=== PATIENT | male | born 1960 | race Hispanic/Latino ===

== ENCOUNTER 2021-06-28 08:21 | Emergency (ER) | payer SELFPAY ==
[2021-06-28 09:25] VITALS: BP 121/57
--- NOTE | 2021-06-28 11:06 | Emergency Department Report ---
ED Extremity Problem HPI - General Chief complaint: Upper Respiratory Infection Stated complaint: PAIN LT ARM AND LEGS Time Seen by Provider: 06/28/21 10:36 Source: patient Mode of arrival: Ambulatory Limitations: No Limitations - History of Present Illness Initial comments: 61 year old male with pmhx of neuropathy, diabetes, sciatica and hypertension pr esents to the ER today with complaints of pain from his left shoulder down into his left forearm. Patient states that his pain started yesterday. Patient states that the pain in his arm gets worse when he extends his finger and he reports difficulty being able to move his left elbow due to pain. He reports swelling mainly about his left elbow. He denies any particular injury but states that he has been doing lots of housework over the past couple days. He denies any known history of gout or arthritis. He states that he takes tramadol and gabapentin which is prescribed by his doctor for chronic pain and peripheral neuropathy but he states that has not been helping. He reports no focal weakness, numbness, tingling, chest pain, shortness of breath, skin discoloration or any additional symptoms at this time. MD Complaint: extremity pain, joint paint -: days(s) (1) Severity scale (0 -10): 10 - Related Data Previous Rx's Medication Instructions Recorded Last Taken Type Acetaminophen/Codeine [Tylenol 1 tab PO Q6H PRN #12 tab 06/28/21 Unknown Rx /Codeine # 3 tab] Ibuprofen [Motrin] 600 mg PO Q8H PRN #25 tablet 06/28/21 Unknown Rx Allergies Allergy/AdvReac Type Severity Reaction Status Date / Time No Known Allergies Allergy Unverified 06/28/21 09:21 ED Review of Systems ROS: Stated complaint: PAIN LT ARM AND LEGS Other details as noted in HPI Comment: All other systems reviewed and negative Respiratory: denies: cough, shortness of breath, SOB with exertion, SOB at rest, wheezing Cardiovascular: denies: chest pain, palpitations, syncope, paroxysmal nocturnal dyspnea Musculoskeletal: joint swelling, arthralgia Neurological: denies: headache, weakness, numbness, paresthesias, confusion, abnormal gait, vertigo Psychiatric: denies: anxiety, depression, auditory hallucinations, visual hallucinations, homicidal thoughts, suicidal thoughts Hematological/Lymphatic: denies: easy bleeding, easy bruising, swollen glands ED Past Medical Hx - Past Medical History Previous Medical History?: Yes Hx Hypertension: Yes Hx Diabetes: Yes - Surgical History Additional Surgical History: MULTIPLE FOOT SURGERIES/ CLAVICLE - Medications Home Medications: Home Medications Medication Instructions Recorded Confirmed Last Taken Type Acetaminophen/Codeine [Tylenol 1 tab PO Q6H PRN #12 tab 06/28/21 Unknown Rx /Codeine # 3 tab] Ibuprofen [Motrin] 600 mg PO Q8H PRN #25 tablet 06/28/21 Unknown Rx ED Physical Exam - General Limitations: No Limitations General appearance: alert, in no apparent distress - Head Head exam: Present: atraumatic, normocephalic, normal inspection - Eye Eye exam: Present: normal appearance, PERRL Pupils: Present: normal accommodation - Respiratory Respiratory exam: Present: normal lung sounds bilaterally. Absent: respiratory distress, wheezes, rales, rhonchi, stridor - Cardiovascular Cardiovascular Exam: Present: regular rate, normal rhythm, normal heart sounds - Expanded Upper Extremity Exam Left Shoulder Exam: Present: normal inspection, full ROM. Absent: tenderness Upper Arm exam: Present: normal inspection, full ROM. Absent: tenderness, swelling Elbow exam: Present: full ROM (Flexion and extension reduced of the left elbow), tenderness (Exquisite tenderness noted to palpation to the lateral aspect of the left elbow. No bruising, significant eerythema or deformity noted. ), swelling (There is mild swelling about the left elbow when compared to the right.), pain w/ pronation/supination. Absent: abrasion, laceration, ecchymosis, deformity, crepidus, dislocation, effusion Forearm Wrist exam: Present: normal inspection, full ROM. Absent: tenderness, swelling, abrasion Hand Wrist exam: Present: normal inspection, full ROM. Absent: tenderness, swelling, abrasion Neurosensory exam: Present: radial nerve intact, ulnar nerve intact, median nerve intact Vascular: Present: normal capillary refill, radial pulse (Normal). Absent: vascular compromise - Neurological Exam Neurological exam: Present: alert, oriented X3, CN II-XII intact, normal gait - Psychiatric Psychiatric exam: Present: normal affect, normal mood - Skin Skin exam: Present: intact ED Course Vital Signs 06/28/21 06/28/21 06/28/21 09:23 09:25 09:33 Temperature 98.2 F 98.2 F 98.2 F Pulse Rate 77 56 L Respiratory 20 20 20 Rate Blood Pressure 121/57 Blood Pressure 121/57 [Right] O2 Sat by Pulse 97 97 Oximetry ED Medical Decision Making - Radiology Data Radiology results: report reviewed Patient: FROY SADLER MR#: [id number] : 1960 Acct:[id number] Age/Sex: 61 / M ADM Date: 06/28/21 Loc: ED Attending Dr: Ordering Physician: CHICHO CORONA Date of Service: 06/28/21 Procedure(s): XR elbow 3+V LT Accession Number(s): [id number] cc: CHICHO CORONA Fluoro Time In Minutes: Left elbow radiograph, 3 views HISTORY: Pain/swelling. COMPARISON: None FINDINGS: No acute fracture or malalignment. Mild osteophyte arthritis. There is osseous excrescence at the radial tuberosity, compatible with enthesophyte formation at the biceps tendon insertion. No significant joint capsular distention. There is soft tissue prominence of the dorsal elbow. IMPRESSION: Nonspecific soft tissue swelling of the dorsal elbow. No acute osseous abnormality. Signer Name: Tori Bullard MD Signed: 06/28/2021 12:35 PM Workstation Name: [id number] Transcribed By: JS Dictated By: TORI BULLARD MD Electronically Authenticated By: TORI BULLARD MD Signed Date/Time: 06/28/21 1235 DD/ 1234 TD/TT: - Medical Decision Making Xray shows soft non specific swelling, and changes concerning for tendonitis/djd but nothing else acute. Patient exam does not suggest septic joint, DVT, acute arterial occlusion, cellulitis or any other emergent conditions warranting additional testing, specialist consult or admission at this time. Discussed imaging results with patient. Recommend follow up with Ortho. He was given sling and pain meds. Patient not toxic or ill appearing and not in any acute distress. Patient expressed understanding of instructions and agreed with plan. Pt was stable at time of discharge. Critical care attestation.: If time is entered above; I have spent that time in minutes in the direct care of this critically ill patient, excluding procedure time. ED Disposition Clinical Impression: Elbow pain, left, Tendonitis of elbow, left, Degenerative joint disease of elbow, left Disposition: 01 HOME / SELF CARE / HOMELESS Is pt being admited?: No Does the pt Need Aspirin: No Condition: Stable Instructions: Arthritis, Tendinitis, [id number], Joint Pain, [id number] Additional Instructions: I recommend that you take the ibuprofen and the tylenol 3 as prescribed. Do not take the tramadol while taking the tylenol 3. Use sling for the next 2-3 days to help with pain and keep it elevated. You can apply ice to area to help with pain and swelling. I do recommend close follow up with Neurology Director next week for further evaluation. Return to ED if worse. Prescriptions: Ibuprofen [Motrin] 600 mg PO Q8H PRN #25 tablet PRN Reason: Pain Acetaminophen/Codeine [Tylenol /Codeine # 3 tab] 1 tab PO Q6H PRN #12 tab PRN Reason: Pain Referrals: DUC LEIVA MD [Staff Physician] - 3-5 Days Time of Disposition: 13:06
--- NOTE | 2021-06-28 12:40 | XRay Report ---
Left elbow radiograph, 3 views HISTORY: Pain/swelling. COMPARISON: None FINDINGS: No acute fracture or malalignment. Mild osteophyte arthritis. There is osseous excrescence at the radial tuberosity, compatible with enthesophyte formation at the biceps tendon insertion. No s ignificant joint capsular distention. There is soft tissue prominence of the dorsal elbow. IMPRESSION: Nonspecific soft tissue swelling of the dorsal elbow. No acute osseous abnormality. Signer Name: Gonzalo Bullard MD Signed: 06/28/2021 12:35 PM Workstation Name: [id number] Referrals-[id number]
== END 2021-06-28 14:45 | disposition home or self-care (01) ==
LOC: ED 08:21
DX: M19.022 Primary osteoarthritis, left elbow (principal); M77.8 Other enthesopathies, not elsewhere classified; M25.522 Pain in left elbow; I10 Essential (primary) hypertension; E11.9 Type 2 diabetes mellitus without complications; Z79.899 Other long term (current) drug therapy; Z98.890 Other specified postprocedural states

== ENCOUNTER 2021-06-30 09:34 | Emergency (ER) | payer SELFPAY ==
[2021-06-30 09:42] VITALS: BP 132/65
--- NOTE | 2021-06-30 10:31 | Emergency Department Report ---
- General Chief complaint: Extremity Injury, Upper Stated complaint: LT FOREARM SWOLLEN RED AND WARM Time Seen by Provider: 06/30/21 10:31 Source: patient Mode of arrival: Ambulatory Limitations: No Limitations - History of Present Illness Initial comments: Patient is a 61-year-old male presents emergency room complaints of pain to his left forearm and elbow that began 2 days ago. He states he is also been having swelling, redness, increased warmth. Patient states that they are doing construction work in his house and he is not sure if he may have been cut by a nail. He states he also plays with his son's dog who sometimes bites a little bit if he plays. He states he is not sure what caused the skin puncture. He states his tetanus immunization is up-to-date. He denies any drainage, fever, chills, vomiting, diarrhea. Past medical history of hypertension and diabetes. No allergies to medications. - Related Data Previous Rx's Medication Instructions Recorded Last Taken Type Acetaminophen/Codeine [Tylenol 1 tab PO Q6H PRN #12 tab 06/28/21 Unknown Rx /Codeine # 3 tab] Ibuprofen [Motrin] 600 mg PO Q8H PRN #25 tablet 06/28/21 Unknown Rx Amoxicillin/Potassium Clav 1 each PO BID 10 Days #20 tablet 06/30/21 Unknown Rx [Augmentin 875-125 Tablet] HYDROcodone/APAP 5-325 [[place] 1 each PO Q6HR PRN #12 tablet 06/30/21 Unknown Rx 5/325] Sulfamethoxazole/Trimethoprim 1 each PO BID 7 Days #14 tablet 06/30/21 Unknown Rx [Bactrim DS TAB] Allergies Allergy/AdvReac Type Severity Reaction Status Date / Time No Known Allergies Allergy Verified 06/30/21 09:36 Abscess Boil HPI - HPI Chief Complaint: Extremity Injury, Upper Stated Complaint: LT FOREARM SWOLLEN RED AND WARM Time Seen by Provider: 06/30/21 10:31 Home Medications: Previous Rx's Medication Instructions Recorded Last Taken Type Acetaminophen/Codeine [Tylenol 1 tab PO Q6H PRN #12 tab 06/28/21 Unknown Rx /Codeine # 3 tab] Ibuprofen [Motrin] 600 mg PO Q8H PRN #25 tablet 06/28/21 Unknown Rx Amoxicillin/Potassium Clav 1 each PO BID 10 Days #20 tablet 06/30/21 Unknown Rx [Augmentin 875-125 Tablet] HYDROcodone/APAP 5-325 [[place] 1 each PO Q6HR PRN #12 tablet 06/30/21 Unknown Rx 5/325] Sulfamethoxazole/Trimethoprim 1 each PO BID 7 Days #14 tablet 06/30/21 Unknown Rx [Bactrim DS TAB] Allergies/Adverse Reactions: Allergies Allergy/AdvReac Type Severity Reaction Status Date / Time No Known Allergies Allergy Verified 06/30/21 09:36 ED Review of Systems ROS: Stated complaint: LT FOREARM SWOLLEN RED AND WARM Other details as noted in HPI Comment: All other systems reviewed and negative ED Past Medical Hx - Past Medical History Hx Hypertension: Yes Hx Diabetes: Yes - Surgical History Additional Surgical History: MULTIPLE FOOT SURGERIES/ CLAVICLE - Social History Smoking Status: Never Smoker - Medications Home Medications: Home Medications Medication Instructions Recorded Confirmed Last Taken Type Acetaminophen/Codeine [Tylenol 1 tab PO Q6H PRN #12 tab 06/28/21 Unknown Rx /Codeine # 3 tab] Ibuprofen [Motrin] 600 mg PO Q8H PRN #25 tablet 06/28/21 Unknown Rx Amoxicillin/Potassium Clav 1 each PO BID 10 Days #20 tablet 06/30/21 Unknown Rx [Augmentin 875-125 Tablet] HYDROcodone/APAP 5-325 [[place] 1 each PO Q6HR PRN #12 tablet 06/30/21 Unknown Rx 5/325] Sulfamethoxazole/Trimethoprim 1 each PO BID 7 Days #14 tablet 06/30/21 Unknown Rx [Bactrim DS TAB] ED Physical Exam - General Limitations: No Limitations General appearance: alert, in no apparent distress - Head Head exam: Present: atraumatic, normocephalic - Eye Eye exam: Present: normal appearance - ENT ENT exam: Present: mucous membranes moist - Respiratory Respiratory exam: Absent: respiratory distress, accessory muscle use - Extremities Exam Extremities exam: Present: other (there is a 5 cm area of erythema, edema, and increased warmth present to the left forearm and left elbow, there is a small 2mm puncture wound, no fluctuance, no drainage, no necrosis, no crepitus, compartments are soft, slightly decreased ROM of the left elbow, neurovasculalry intact) - Neurological Exam Neurological exam: Present: alert, oriented X3 - Psychiatric Psychiatric exam: Present: normal affect, normal mood - Skin Skin exam: Present: warm, dry ED Course Vital Signs 06/30/21 09:40 Temperature 98.2 F Pulse Rate 79 Respiratory 20 Rate Blood Pressure 132/65 O2 Sat by Pulse 94 Oximetry ED Medical Decision Making - Medical Decision Making Patient is a 61-year-old male presents emergency room complaints of pain to his left forearm and elbow that began 2 days ago. He states he is also been having swelling, redness, increased warmth. Patient states that they are doing construction work in his house and he is not sure if he may have been cut by a nail. He states he also plays with his son's dog who sometimes bites a little bit if he plays. He states he is not sure what caused the skin puncture. He states his tetanus immunization is up-to-date. He denies any drainage, fever, chills, vomiting, diarrhea. Past medical history of hypertension and diabetes. No allergies to medications. Vitals are stable. Patient is afebrile, no tachycardia, no hypotension. On exam:there is a 5 cm area of erythema, edema, and increased warmth present to the left forearm and left elbow, there is a small 2mm puncture wound, no fluctuance, no drainage, no necrosis, no crepitus, compartments are soft, slightly decreased ROM of the left elbow, neurovasculalry intact. Examination appears consistent with cellulitis. There is no signs of abscess at this time. Do not suspect septic joint, this appears to be infected skin in the forearm and elbow region likely initially from a small puncture wound. No clinical signs of necrotizing fasciitis at this time, no palpable soft tissue gas/crepitus, no necrosis. Patient will be placed on antibiotics and given pain medication. Discussed the importance of reexamination in the next 3 days. Skin marker was used to calixto the area of induration and advised to return immediately if it begins to cross the line. I discussed very strict return precautions in detail with patient and he verbalized understanding. Advised patient Please take medication as prescribed. Please follow-up with a primary care doctor in the next 3 days to have area reexamined. Return to emergency room immediately for any new or worsening symptoms including but not limited to worsening swelling, worsening redness, worsening pain, fever, vom iting, chills, etc. I have marked with a skin marker on your skin in the area of redness and swelling, if it begins to cross the line please return to emergency room immediately. Critical care attestation.: If time is entered above; I have spent that time in minutes in the direct care of this critically ill patient, excluding procedure time. ED Disposition Clinical Impression: Cellulitis Qualifiers: Site of cellulitis: extremity Site of cellulitis of extremity: upper extremity Laterality: left Qualified Code(s): L03.114 - Cellulitis of left upper limb Disposition: HOME / SELF CARE / HOMELESS Is pt being admited?: No Does the pt Need Aspirin: No Condition: Stable Instructions: Cellulitis, Adult Additional Instructions: Please take medication as prescribed. Please follow-up with a primary care doctor in the next 3 days to have area reexamined. Return to emergency room immediately for any new or worsening symptoms including but not limited to worsening swelling, worsening redness, worsening pain, fever, vomiting, chills, etc. I have marked with a skin marker on your skin in the area of redness and swelling, if it begins to cross the line please return to emergency room immediately. Prescriptions: Amoxicillin/Potassium Clav [Augmentin 875-125 Tablet] 1 each PO BID 10 Days #20 tablet Sulfamethoxazole/Trimethoprim [Bactrim DS TAB] 1 each PO BID 7 Days #14 tablet HYDROcodone/APAP 5-325 [[place] 5/325] 1 each PO Q6HR PRN #12 tablet PRN Reason: Pain , Severe (7-10) Referrals: your, primary care doctor [Other] - 2-3 Days Time of Disposition: 10:34 Print Language: DIVEHI
== END 2021-06-30 10:55 | disposition home or self-care (01) ==
LOC: ED 09:34
DX: L03.114 Cellulitis of left upper limb (principal); I10 Essential (primary) hypertension; E11.9 Type 2 diabetes mellitus without complications; Z79.899 Other long term (current) drug therapy; Z98.890 Other specified postprocedural states
CPT/HCPCS: 99282

== ENCOUNTER 2021-07-02 17:29 | Inpatient (IN) | payer SELFPAY ==
--- NOTE | 2021-07-02 20:10 | Event Note ---
ED Screening Note Date of service: 07/02/21 Time: 20:08 ED Screening Note: 61-year-old male patient with history of diabetes presents to the emergency department with complaints of progressively worsening left elbow pain/redness/swelling. Patient was evaluated in the emergency department 2 days ago and diagnosed with cellulitis. He was prescribed Augmentin and Bactrim. He has been compliant with his antibiotics. Symptoms have worsened. General: Awake, appropriately interactive, no acute distress. Neck: Supple. Full range of motion intact. Cardiovascular: Normal peripheral perfusion. Pulmonary: No respiratory distress. Patient is speaking normally without use of accessory muscles. Skin: No apparent rashes or lesions. Neurological: No facial asymmetry. Speech is clear. Follows commands. Patient is alert and oriented. Musculoskeletal: Tenderness to palpation throughout the left elbow and proximal left forearm with overlying erythema and significant soft tissue swelling. Painful range of motion. Left elbow held in flexion at rest. Distal neurovascular and motor/sensory function intact. Psych: Cooperative. Appropriate mood and affect.
--- NOTE | 2021-07-02 20:44 | XRay Report ---
CHEST 2 VIEWS INDICATION / CLINICAL INFORMATION: chills, 93% o2 sat. COMPARISON: None available. FINDINGS: SUPPORT DEVICES: None. HEART / MEDIASTINUM: No significant abnormality. LUNGS / PLEURA: No significant pulmonary or pleural abnormality. No pneumothorax. ADDITIONAL FINDINGS: Surgical fixation of right clavicle. IMPRESSION: 1. No acute findings. Signer Name: Sergio Melgoza MD Signed: 07/02/2021 8:40 PM Workstation Name: [id number]
[2021-07-02] MEDS ORDERED: MORPHINE 4 MG/1 ML INJ IV ONE (20:46)
[2021-07-02] MEDS ORDERED: ONDANSETRON 4 MG/2 ML INJ IV ONE (20:46)
--- NOTE | 2021-07-02 20:47 | XRay Report ---
LEFT ELBOW 3 VIEW(S) INDICATION / CLINICAL INFORMATION: worsening cellulitis to elbow, hx dm, septic joint COMPARISON: None available. FINDINGS: BONES / JOINT(S): No acute fracture or subluxation. There are degenerative changes at the radial tube rosity. No joint effusion. SOFT TISSUES: Soft tissue swelling at the dorsum of the elbow. No soft tissue gas seen. ADDITIONAL FINDINGS: None. Signer Name: Sergio Melgoza MD Signed: 07/02/2021 8:42 PM Workstation Name: [id number]
[2021-07-02] MEDS ORDERED: VANCOMYCIN 2,000 MG in SODIUM CHLORIDE 0.9% 500 ML 500 ML IV ONE (20:50)
[2021-07-02 21:13] LABS: Basophils % (Auto) 0.4 % (0.0-1.8); Eosinophils # (Auto) 0.1 K/mm3 (0.0-0.4); Eosinophils % (Auto) 0.7 % (0.0-4.3); Hematocrit 30.5 % (35.5-45.6); Hemoglobin 10.5 gm/dl (11.8-15.2); Lymphocytes # (Auto) 1.3 K/mm3 (1.2-5.4); Lymphocytes % (Auto) 11.8 % (13.4-35.0); Mean Corpuscular HGB Conc 34 % (32-34); Mean Corpuscular Volume 97 fl (84-94); Monocytes % (Auto) 8.8 % (0.0-7.3); Platelet Count 287 K/mm3 (140-440); Red Blood Count 3.15 M/mm3 (3.65-5.03); Red Cell Distribution Width 13.2 % (13.2-15.2)
[2021-07-02 21:30] LABS: Erythrocyte Sedimentation Rate > 140.0 mm/Hr (0-20)
[2021-07-02 21:32] LABS: Alanine Aminotransferase 14 units/L (7-56); Albumin 3.9 g/dL (3.9-5); BUN/Creatinine Ratio 20; Blood Urea Nitrogen 20 mg/dL (9-20); Calcium 9.5 mg/dL (8.4-10.2); Hemolysis Index 10
--- NOTE | 2021-07-02 21:49 | Emergency Department Report ---
ED Extremity Problem HPI - General Chief complaint: Extremity Injury, Upper Stated complaint: PAIN LT ELBOW/NAUSEA Time Seen by Provider: 07/02/21 20:19 Source: patient Mode of arrival: Ambulatory Limitations: No Limitations - History of Present Illness Initial comments: 61-year-old male with a past medical history of diabetes previously on insulin and pills) and hypertension presents to the hospital complaining of persistent left arm pain and swelling. Patient was evaluated here on June 28 for left elbow pain. Diagnosed with tendinitis. Returned on June 30. Diagnosed with cellulitis. Patient has been taking the prescribed Augmentin and Bactrim without improvement. Patient prescribed [place] for pain. Swelling, pain, redness, warmth have been worsening. Patient denies subjective fever. Patient states he has decreased p.o. intake due to nausea and occasional vomiting. Symptoms started after puncture wound via nail. Patient states he has received a tetanus shot 2 to 3 years ago. Patient's O2 saturation room air decorated 93% on initial vital signs. Patient denies respiratory symptoms. History of smoking in the past. Severity scale (0 -10): 10 - Related Data Previous Rx's Medication Instructions Recorded Last Taken Type Acetaminophen/Codeine [Tylenol 1 tab PO Q6H PRN #12 tab 06/28/21 Unknown Rx /Codeine # 3 tab] Ibuprofen [Motrin] 600 mg PO Q8H PRN #25 tablet 06/28/21 Unknown Rx Amoxicillin/Potassium Clav 1 each PO BID 10 Days #20 tablet 06/30/21 Unknown Rx [Augmentin 875-125 Tablet] HYDROcodone/APAP 5-325 [[place] 1 each PO Q6HR PRN #12 tablet 06/30/21 Unknown Rx 5/325] Sulfamethoxazole/Trimethoprim 1 each PO BID 7 Days #14 tablet 06/30/21 Unknown Rx [Bactrim DS TAB] Allergies Allergy/AdvReac Type Severity Reaction Status Date / Time No Known Allergies Allergy Verified 07/02/21 19:44 ED Review of Systems ROS: Stated complaint: PAIN LT ELBOW/NAUSEA Other details as noted in HPI Comment: All other systems reviewed and negative ED Past Medical Hx - Past Medical History Hx Hypertension: Yes Hx Diabetes: Yes - Surgical History Additional Surgical History: MULTIPLE FOOT SURGERIES/ [place] - Social History Smoking Status: Never Smoker - Medications Home Medications: Home Medications Medication Instructions Recorded Confirmed Last Taken Type Acetaminophen/Codeine [Tylenol 1 tab PO Q6H PRN #12 tab 06/28/21 Unknown Rx /Codeine # 3 tab] Ibuprofen [Motrin] 600 mg PO Q8H PRN #25 tablet 06/28/21 Unknown Rx Amoxicillin/Potassium Clav 1 each PO BID 10 Days #20 tablet 06/30/21 Unknown Rx [Augmentin 875-125 Tablet] HYDROcodone/APAP 5-325 [[place] 1 each PO Q6HR PRN #12 tablet 06/30/21 Unknown Rx 5/325] Sulfamethoxazole/Trimethoprim 1 each PO BID 7 Days #14 tablet 06/30/21 Unknown Rx [Bactrim DS TAB] ED Physical Exam - General Limitations: No Limitations - Other Other exam information: General: No acute distress Head: Atraumatic Eyes: normal appearance ENT: Moist mucous membranes Neck: Normal appearance, no midline tenderness Chest: Clear to auscultation bilaterally CV: Regular rate and rhythm Abdomen: Soft, normal bowel sounds, nontender, nondistended, no rebound or guarding Back: Normal inspection Extremity: Left proximal lateral forearm pain, swelling, warmth, and erythema starting at the elbow and extending distally limited flexion and extension secondary to pain. Mild tenderness at the olecranon area. 2+ radial pulse Neuro: Alert O x 3, no facial asymmetry, speech clear, no gross motor sensory deficit Psych: Appropriate behavior Skin: No rash ED Course Vital Signs 07/02/21 07/02/21 19:46 19:48 Temperature 99.4 F Pulse Rate 87 Blood Pressure 147/64 O2 Sat by Pulse 93 Oximetry ED Medical Decision Making - Lab Data Result diagrams: 07/02/21 20:53 07/02/21 20:53 Lab Results 07/02/21 07/02/21 Range/Units 20:53 20:53 WBC 11.3 H (4.5-11.0) K/mm3 RBC 3.15 L (3.65-5.03) M/mm3 Hgb 10.5 L (11.8-15.2) gm/dl Hct 30.5 L (35.5-45.6) % MCV 97 H (84-94) fl MCH 33 H (28-32) pg MCHC 34 (32-34) % RDW 13.2 (13.2-15.2) % Plt Count 287 (140-440) K/mm3 Lymph % (Auto) 11.8 L (13.4-35.0) % [place] % (Auto) 8.8 H (0.0-7.3) % Eos % (Auto) 0.7 (0.0-4.3) % Baso % (Auto) 0.4 (0.0-1.8) % Lymph # (Auto) 1.3 (1.2-5.4) K/mm3 [place] # (Auto) 1.0 H (0.0-0.8) K/mm3 Eos # (Auto) 0.1 (0.0-0.4) K/mm3 Baso # (Auto) 0.0 (0.0-0.1) K/mm3 Seg Neutrophils % 78.3 H (40.0-70.0) % Seg Neutrophils # 8.8 H (1.8-7.7) K/mm3 ESR > 140.0 (0-20) mm/Hr Sodium 132 L (137-145) mmol/L Potassium 4.3 (3.6-5.0) mmol/L Chloride 93.3 L (98-107) mmol/L Carbon Dioxide 28 (22-30) mmol/L Anion Gap 15 mmol/L BUN 20 (9-20) mg/dL Creatinine 1.0 (0.8-1.3) mg/dL Estimated GFR > 60 ml/min BUN/Creatinine Ratio 20 % Glucose 298 H (75-100) mg/dL Calcium 9.5 (8.4-10.2) mg/dL Total Bilirubin 0.20 (0.1-1.2) mg/dL AST 15 (5-40) units/L ALT 14 (7-56) units/L Alkaline Phosphatase 67 (35-129) units/L C-Reactive Protein 30.30 H (0.00-1.30) mg/dL Total Protein 8.4 H (6.3-8.2) g/dL Albumin 3.9 (3.9-5) g/dL Albumin/Globulin Ratio 0.9 % - Radiology Data Radiology results: report reviewed LEFT ELBOW 3 VIEW(S) INDICATION / CLINICAL INFORMATION: worsening cellulitis to elbow, hx dm, septic joint COMPARISON: None available. FINDINGS: BONES / JOINT(S): No acute fracture or subluxation. There are degenerative c hanges at the radial tuberosity. No joint effusion. SOFT TISSUES: Soft tissue swelling at the dorsum of the elbow. No soft tissue gas seen. ADDITIONAL FINDINGS: None. - Medical Decision Making 61-year-old diabetic male presents to the hospital worsening left elbow/forearm cellulitis with elevated inflammatory markers. Patient has failed outpatient therapy. IV vancomycin ordered with plan to admit patient to the hospital for further treatment. Patient treated with morphine and Zofran for pain. Critical Care Time: No Critical care attestation.: If time is entered above; I have spent that time in minutes in the direct care of this critically ill patient, excluding procedure time. ED Disposition Clinical Impression: Cellulitis of left forearm, Diabetes, Failure of outpatient treatment Disposition: 09 ADMITTED INPATIENT Is pt being admited?: Yes Condition: Stable Instructions: Diabetes Mellitus Type 2 in Adults (ED) Time of Disposition: 21:57
[2021-07-02] MEDS ORDERED: ALBUTEROL 2.5 MG/3 ML NEBU IH PRN (22:13)
[2021-07-02] MEDS ORDERED: ACETAMINOPHEN 325 MG TAB PO PRN (22:13)
[2021-07-02] MEDS ORDERED: ONDANSETRON 4 MG/2 ML INJ IV PRN (22:13)
[2021-07-02] MEDS ORDERED: DEXTROSE 50% IN WATER (25GM) 50 ML SYRINGE IV PRN (22:13)
[2021-07-02] MEDS ORDERED: IBUPROFEN 600 MG TAB PO PRN (22:16)
--- NOTE | 2021-07-02 22:22 | History and Physical Report ---
History of Present Illness Date of examination: 07/02/21 Date of admission: 07/02/21 Chief complaint: Cellulitis pain of the left elbow History of present illness: 61-year-old male with history of diabetes and hypertension was brought to the hospital because of persistent left arm pain and swelling since June 27 after puncture wound by a nail. Patient was evaluated here on June 28 for left elbow pain. Patient was diagnosed with tendinitis. Returned on June 30. Diagnosed with cellulitis. Patient has been taking the prescribed Augmentin and Bactrim without improvement. Patient prescribed [place] for pain. Swelling, pain, redness, warmth have been worsening. Patient denies subjective fever. Patient states he has decreased p.o. intake due to nausea and occasional vomiting. Patient states he has received a tetanus shot 2 to 3 years ago. Patient's O2 saturation room air decorated 93% on initial vital signs. Patient denies respiratory symptoms. In the emergency room patient is found to have cellulitis of the left elbow. X- ray of the left elbow shows soft tissue swelling at the dorsum of the elbow. No soft tissue gas seen. Emergency doctor thinks patient does not need any orthopedic evaluation at this time. Will admit the patient put the patient on vancomycin and IV Zosyn and consult infectious disease. Med rec is done. Advance discharge process is initiated Past History Past Medical History: diabetes, hypertension Medications and Allergies Allergies Allergy/AdvReac Type Severity Reaction Status Date / Time No Known Allergies Allergy Verified 07/02/21 19:44 Home Medications Medication Instructions Recorded Confirmed Last Taken Type Acetaminophen/Codeine [Tylenol 1 tab PO Q6H PRN #12 tab 06/28/21 Unknown Rx /Codeine # 3 tab] Ibuprofen [Motrin] 600 mg PO Q8H PRN #25 tablet 06/28/21 Unknown Rx Amoxicillin/Potassium Clav 1 each PO BID 10 Days #20 tablet 06/30/21 Unknown Rx [Augmentin 875-125 Tablet] HYDROcodone/APAP 5-325 [[place] 1 each PO Q6HR PRN #12 tablet 06/30/21 Unknown Rx 5/325] Sulfamethoxazole/Trimethoprim 1 each PO BID 7 Days #14 tablet 06/30/21 Unknown Rx [Bactrim DS TAB] Active Meds: Active Medications Acetaminophen (Acetaminophen 325 Mg Tab) 650 mg PO Q4H PRN PRN Reason: Pain MILD(1-3)/Fever >100.5/VAZQUEZ Albuterol (Albuterol 2.5 Mg/3 Ml Nebu) 2.5 mg IH Q4HRT PRN PRN Reason: Shortness Of Breath Dextrose (Dextrose 50% In Water (25gm) 50 Ml Syringe) 50 ml IV Q30MIN PRN; Protocol PRN Reason: Hypoglycemia Famotidine (Famotidine 20 Mg Tab) 20 mg PO BID [facility] Heparin Sodium (Porcine) (Heparin 5,000 Unit/1 Ml Vial) 5,000 unit SUB-Q Q8HR [facility] Hydromorphone HCl (Hydromorphone 1 Mg/1 Ml Inj) 0.5 mg IV Q3H PRN PRN Reason: Pain , Severe (7-10) Vancomycin HCl 2,000 mg/ (Sodium Chloride) 540 mls @ 333 mls/hr IV ONCE ONE; Protocol Stop: 07/02/21 22:27 Last Admin: 07/02/21 21:53 Dose: 333 mls/hr Documented by: Vancomycin HCl (Vancomycin/Ns 1 Gm/250 Ml) 1 gm in 250 mls @ 166.667 mls/hr IV Q12H [facility]; Protocol Piperacillin Sod/Tazobactam Sod (Zosyn/Ns 4.5gm/100ml) 4.5 gm in 100 mls @ 200 mls/hr IV Q8H [facility]; Protocol Ibuprofen (Ibuprofen 600 Mg Tab) 600 mg PO Q8H PRN PRN Reason: PAIN Insulin Human Lispro (Insulin Lispro 100 Unit/Ml) 0 unit SUB-Q ACHS [facility]; Protocol Ondansetron HCl (Ondansetron 4 Mg/2 Ml Inj) 4 mg IV Q8H PRN PRN Reason: Nausea And Vomiting Oxycodone/Acetaminophen (Oxycodone /Acetaminophen 5-325mg Tab) 1 tab PO Q6H PRN PRN Reason: Pain, Moderate (4-6) Sodium Chloride (Sodium Chloride 0.9% 10 Ml Flush Syringe) 10 ml IV BID [place] Sodium Chloride (Sodium Chloride 0.9% 10 Ml Flush Syringe) 10 ml IV PRN PRN PRN Reason: LINE FLUSH Review of Systems All systems: negative Musculoskeletal: shooting arm pain, redness of joints, hot joints, other (Cellulitis of the left elbow) Exam - Constitutional Vitals: Temp Pulse Resp BP Pulse Ox 99.4 F 87 147/64 93 07/02/21 19:48 07/02/21 19:46 07/02/21 19:46 07/02/21 19:46 General appearance: Present: no acute distress, well-nourished - EENT Eyes: Present: PERRL ENT: hearing intact, clear oral mucosa - Neck Neck: Present: supple, normal ROM - Respiratory Respiratory effort: normal Respiratory: bilateral: CTA - Cardiovascular Heart Sounds: Present: S1 & S2. Absent: rub, click - Extremities Extremities: pulses symmetrical, No edema Extremity abnormal: edema, erythema, other (Cellulitis of the left elbow) Peripheral Pulses: within normal limits - Abdominal General gastrointestinal: Present: soft, non-tender, non-distended, normal bowel sounds Male genitourinary: Present: normal - Integumentary Integumentary: Present: clear, warm, dry - Musculoskeletal Musculoskeletal: gait normal, strength equal bilaterally - Psychiatric Psychiatric: appropriate mood/affect, intact judgment & insight - Neurologic Neurologic: CNII-XII intact, moves all extremities Results - Labs CBC & Chem 7: 07/02/21 20:53 07/02/21 20:53 Labs: Laboratory Last Values WBC 11.3 K/mm3 (4.5-11.0) H 07/02/21 20:53 RBC 3.15 M/mm3 (3.65-5.03) L 07/02/21 20:53 Hgb 10.5 gm/dl (11.8-15.2) L 07/02/21 20:53 Hct 30.5 % (35.5-45.6) L 07/02/21 20:53 MCV 97 fl (84-94) H 07/02/21 20:53 MCH 33 pg (28-32) H 07/02/21 20:53 MCHC 34 % (32-34) 07/02/21 20:53 RDW 13.2 % (13.2-15.2) 07/02/21 20:53 Plt Count 287 K/mm3 (140-440) 07/02/21 20:53 Lymph % (Auto) 11.8 % (13.4-35.0) L 07/02/21 20:53 [place] % (Auto) 8.8 % (0.0-7.3) H 07/02/21 20:53 Eos % (Auto) 0.7 % (0.0-4.3) 07/02/21 20:53 Baso % (Auto) 0.4 % (0.0-1.8) 07/02/21 20:53 Lymph # (Auto) 1.3 K/mm3 (1.2-5.4) 07/02/21 20:53 [place] # (Auto) 1.0 K/mm3 (0.0-0.8) H 07/02/21 20:53 Eos # (Auto) 0.1 K/mm3 (0.0-0.4) 07/02/21 20:53 Baso # (Auto) 0.0 K/mm3 (0.0-0.1) 07/02/21 20:53 Seg Neutrophils % 78.3 % (40.0-70.0) H 07/02/21 20:53 Seg Neutrophils # 8.8 K/mm3 (1.8-7.7) H 07/02/21 20:53 ESR > 140.0 mm/Hr (0-20) 07/02/21 20:53 Sodium 132 mmol/L (137-145) L 07/02/21 20:53 Potassium 4.3 mmol/L (3.6-5.0) 07/02/21 20:53 Chloride 93.3 mmol/L (98-107) L 07/02/21 20:53 Carbon Dioxide 28 mmol/L (22-30) 07/02/21 20:53 Anion Gap 15 mmol/L 07/02/21 20:53 BUN 20 mg/dL (9-20) 07/02/21 20:53 Creatinine 1.0 mg/dL (0.8-1.3) 07/02/21 20:53 Estimated GFR > 60 ml/min 07/02/21 20:53 BUN/Creatinine Ratio 20 % 07/02/21 20:53 Glucose 298 mg/dL (75-100) H 07/02/21 20:53 Calcium 9.5 mg/dL (8.4-10.2) 07/02/21 20:53 Total Bilirubin 0.20 mg/dL (0.1-1.2) 07/02/21 20:53 AST 15 units/L (5-40) 07/02/21 20:53 ALT 14 units/L (7-56) 07/02/21 20:53 Alkaline Phosphatase 67 units/L (35-129) 07/02/21 20:53 C-Reactive Protein 30.30 mg/dL (0.00-1.30) H 07/02/21 20:53 Total Protein 8.4 g/dL (6.3-8.2) H 07/02/21 20:53 Albumin 3.9 g/dL (3.9-5) 07/02/21 20:53 Albumin/Globulin Ratio 0.9 % 07/02/21 20:53 - Imaging and Cardiology Chest x-ray: report reviewed Assessment and Plan VTE prophylaxis?: Chemical Plan of care discussed with patient/family: Yes - Patient Problems (1) Cellulitis of left elbow Current Visit: Yes Status: Acute Plan to address problem: Admit the patient to the [facility]. 1800 kcal ADA diet. Vancomycin 1 g IV every 12 hours. Zosyn 4.5 g IV every every 8 hours.. We do the blood culture. Will consult infectious disease for evaluation. Wound care evaluation. Will consult orthopedic if needed. Recheck CBC BMP in the morning. (2) Tendonitis of elbow, left Current Visit: No Status: Acute Plan to address problem: Vancomycin 1 g IV every 12 hours. Zosyn 4.5 g IV every every 8 hours.. We do the blood culture. Will consult infectious disease for evaluation. Wound care evaluation. Will consult orthopedic if needed. Recheck CBC BMP in the morning. (3) Hypertension Current Visit: Yes Status: Acute Plan to address problem: Hydralazine 10 mg IV every 6 hours as needed. We will monitor the blood pressure closely (4) Diabetes Current Visit: Yes Status: Acute Plan to address problem: 1800 kcal ADA diet. Humalog sliding scale moderate dose coverage. Diabetic education (5) DVT prophylaxis Current Visit: Yes Status: Acute Plan to address problem: Heparin 5000 units subcu every 8 hours for DVT prophylaxis. Pepcid 20 mg p.o. twice daily for GI prophylaxis. Patient is a full code.
[2021-07-02] MEDS: HYDROmorphone 1 MG/1 ML INJ IV PRN (22:53)
[2021-07-02] MEDS ORDERED: VANCOMYCIN PHARMACY TO DOSE IV SCH (23:00)
[2021-07-02] MEDS ORDERED: VANCOMYCIN/NS 1 GM/250 ML 1 GM/250 ML BAG IV SCH (23:00)
[2021-07-03] MEDS ORDERED: PIPERACIL/TAZOBACTA 4.5/NS 100 4.5 GM/100 ML VIAL IV SCH
[2021-07-03] MEDS: HYDROmorphone 1 MG/1 ML INJ IV PRN ×3 (01:55→20:42)
[2021-07-03] MEDS: HEPARIN 5,000 UNIT/1 ML VIAL SUB-Q SCH ×3 (05:30→21:29)
[2021-07-03 06:16] LABS: Basophils % (Auto) 0.4 % (0.0-1.8); Eosinophils # (Auto) 0.1 K/mm3 (0.0-0.4); Eosinophils % (Auto) 1.3 % (0.0-4.3); Hematocrit 27.6 % (35.5-45.6); Hemoglobin 9.7 gm/dl (11.8-15.2); Lymphocytes # (Auto) 1.4 K/mm3 (1.2-5.4); Mean Corpuscular HGB Conc 35 % (32-34); Mean Corpuscular Volume 95 fl (84-94); Monocytes # (Auto) 1.1 K/mm3 (0.0-0.8); Monocytes % (Auto) 10.3 % (0.0-7.3); Platelet Count 279 K/mm3 (140-440); Red Blood Count 2.92 M/mm3 (3.65-5.03); Red Cell Distribution Width 13.2 % (13.2-15.2)
[2021-07-03 06:19] LABS: BUN/Creatinine Ratio 19; Blood Urea Nitrogen 19 mg/dL (9-20); Hemolysis Index 1
[2021-07-03] MEDS: INSULIN LISPRO 100 UNIT/ML SUB-Q SCH ×4 (08:38→21:29)
[2021-07-03] MEDS: VANCOMYCIN 1,500 MG in SODIUM CHLORIDE 0.9% 500 ML 500 ML IV SCH ×2 (09:50→23:05)
[2021-07-03] MEDS: FAMOTIDINE 20 MG TAB PO SCH ×2 (09:50→21:30)
[2021-07-03] MEDS: oxyCODONE /ACETAMINOPHEN 5-325MG TAB PO PRN ×2 (10:00→23:04)
[2021-07-03] MEDS: AMPICILLIN/SULBACTA 3GM/100ML 3 GM/100 ML BAG IV SCH ×2 (13:49→20:02)
--- NOTE | 2021-07-03 16:19 | Consultation ---
History of Present Illness - Reason for Consult Consult date: 07/03/21 - History of Present Illness 61 yo M PMHx DM2 and HTN presented to the hospital complaining of left arm pain and swelling. He notes this began on 06/27/2021 after being "punctured by a nail". He was initially seen here the next day and also 06/30/2021, and was then prescribed Augmentin and Bactrim. This did not alleviate his symptoms. Afebrile, white count 11.3 on admission. Blood cultures no growth so far. Currently on vancomycin and Zosyn. Imaging personally reviewed: Elbow XR: soft tissue swelling. Review of Systems: Bold if positive, otherwise negative General: fevers, chills, rigors HEENT: visual disturbance, diplopia, eye pain Respiratory: cough, sputum, hemoptysis, shortness of breath Cardiovascular: chest pain, syncope Gastrointestinal: nausea, vomiting, diarrhea, abdominal pain Genitourinary: dysuria, hematuria, flank pain Musculoskeletal: neck pain, back pain, joint pain, edema Neurologic: headaches, seizures Hematologic: easy bruising or bleeding Endocrine: night sweats, acute weight loss Skin: rash, jaundice, redness Psychiatric: suicidal, homicidal ideation Past History Past Medical History: diabetes, hypertension Medications and Allergies Allergies Allergy/AdvReac Type Severity Reaction Status Date / Time No Known Allergies Allergy Verified 07/02/21 19:44 Home Medications Medication Instructions Recorded Confirmed Last Taken Type Acetaminophen/Codeine [Tylenol 1 tab PO Q6H PRN #12 tab 06/28/21 Unknown Rx /Codeine # 3 tab] Ibuprofen [Motrin] 600 mg PO Q8H PRN #25 tablet 06/28/21 Unknown Rx Amoxicillin/Potassium Clav 1 each PO BID 10 Days #20 tablet 06/30/21 Unknown Rx [Augmentin 875-125 Tablet] HYDROcodone/APAP 5-325 [[place] 1 each PO Q6HR PRN #12 tablet 06/30/21 Unknown Rx 5/325] Sulfamethoxazole/Trimethoprim 1 each PO BID 7 Days #14 tablet 06/30/21 Unknown Rx [Bactrim DS TAB] Active Meds: Active Medications Acetaminophen (Acetaminophen 325 Mg Tab) 650 mg PO Q4H PRN PRN Reason: Pain MILD(1-3)/Fever >100.5/VAZQUEZ Albuterol (Albuterol 2.5 Mg/3 Ml Nebu) 2.5 mg IH Q4HRT PRN PRN Reason: Shortness Of Breath Dextrose (Dextrose 50% In Water (25gm) 50 Ml Syringe) 0 ml IV Q30MIN PRN; Protocol PRN Reason: Hypoglycemia Famotidine (Famotidine 20 Mg Tab) 20 mg PO BID [facility] Last Admin: 07/03/21 09:50 Dose: 20 mg Documented by: Heparin Sodium (Porcine) (Heparin 5,000 Unit/1 Ml Vial) 5,000 unit SUB-Q Q8HR [facility] Last Admin: 07/03/21 13:48 Dose: 5,000 unit Documented by: Hydromorphone HCl (Hydromorphone 1 Mg/1 Ml Inj) 0.5 mg IV Q3H PRN PRN Reason: Pain , Severe (7-10) Last Admin: 07/03/21 14:02 Dose: 0.5 mg Documented by: Vancomycin HCl 1,500 mg/ (Sodium Chloride) 530 mls @ 333.333 mls/hr IV Q12HR [facility] Last Admin: 07/03/21 09:50 Dose: 333.333 mls/hr Documented by: Ampicillin Sodium/Sulbactam Sodium (Unasyn/Ns 3 Gm/100 Ml) 3 gm in 100 mls @ 200 mls/hr IV Q6H [facility]; Protocol Last Admin: 07/03/21 13:49 Dose: 200 mls/hr Documented by: Insulin Human Lispro (Insulin Lispro 100 Unit/Ml) 0 unit SUB-Q ACHS [facility]; Protocol Last Admin: 07/03/21 11:36 Dose: 4 unit Documented by: Ondansetron HCl (Ondansetron 4 Mg/2 Ml Inj) 4 mg IV Q8H PRN PRN Reason: Nausea And Vomiting Oxycodone/Acetaminophen (Oxycodone /Acetaminophen 5-325mg Tab) 1 tab PO Q6H PRN PRN Reason: Pain, Moderate (4-6) Last Admin: 07/03/21 10:00 Dose: 1 tab Documented by: Sodium Chloride (Sodium Chloride 0.9% 10 Ml Flush Syringe) 10 ml IV BID [facility] Sodium Chloride (Sodium Chloride 0.9% 10 Ml Flush Syringe) 10 ml IV PRN PRN PRN Reason: LINE FLUSH Physical Examination - Physical Exam Narrative exam: Physical Exam: Constitutional: Alert, cooperative. No acute distress Head, Ears, Nose: Normocephalic, atraumatic. External ears, nose normal Eyes: Conjunctivae/corneas clear. No icterus. No ptosis. Neck: Supple, no meningeal signs Oral: dentition fair, no thrush Cardiovascular: S1, S2 normal. Respiratory: Good air entry, clear to auscultation bilaterally GI: Soft, non-tender; bowel sounds normal. No peritoneal signs. Musculoskeletal: Left elbow swelling, tenderness Skin: No rash or abscess Hem/Lymphatic: No palpable cervical or supraclavicular nodes. No lymphangitis Psych: Mood ok. Affect normal Neurological: Awake, alert, oriented. No gross abnormality - Constitutional Vitals: Vital Signs Temp Pulse Resp BP Pulse Ox 99.5 F 82 12 151/75 95 07/03/21 04:43 07/03/21 07:30 07/03/21 07:30 07/03/21 08:30 07/03/21 08:30 Temperature -Last 24 Hours Temperature 99.5 F Temperature 99.4 F Results - Labs CBC & Chem 7: 07/03/21 05:20 07/03/21 05:20 Labs: Abnormal lab results 07/02/21 07/02/21 07/03/21 Range/Units 20:53 20:53 05:20 WBC 11.3 H (4.5-11.0) K/mm3 RBC 3.15 L 2.92 L (3.65-5.03) M/mm3 Hgb 10.5 L 9.7 L (11.8-15.2) gm/dl Hct 30.5 L 27.6 L (35.5-45.6) % MCV 97 H 95 H (84-94) fl MCH 33 H 33 H (28-32) pg MCHC 35 H (32-34) % Lymph % (Auto) 11.8 L 13.0 L (13.4-35.0) % [place] % (Auto) 8.8 H 10.3 H (0.0-7.3) % [place] # (Auto) 1.0 H 1.1 H (0.0-0.8) K/mm3 Seg Neutrophils % 78.3 H 75.0 H (40.0-70.0) % Seg Neutrophils # 8.8 H 7.9 H (1.8-7.7) K/mm3 Sodium 132 L (137-145) mmol/L Chlor[place] 93.3 L (98-107) mmol/L Glucose 298 H (75-100) mg/dL POC Glucose (70-105) mg/dL C-Reactive Protein 30.30 H (0.00-1.30) mg/dL Total Protein 8.4 H (6.3-8.2) g/dL 07/03/21 07/03/21 07/03/21 Range/Units 05:20 08:26 11:32 WBC (4.5-11.0) K/mm3 RBC (3.65-5.03) M/mm3 Hgb (11.8-15.2) gm/dl Hct (35.5-45.6) % MCV (84-94) fl MCH (28-32) pg MCHC (32-34) % Lymph % (Auto) (13.4-35.0) % [place] % (Auto) (0.0-7.3) % [place] # (Auto) (0.0-0.8) K/mm3 Seg Neutrophils % (40.0-70.0) % Seg Neutrophils # (1.8-7.7) K/mm3 Sodium 130 L (137-145) mmol/L Chloride 92.3 L (98-107) mmol/L Glucose 285 H (75-100) mg/dL POC Glucose 334 H 276 H (70-105) mg/dL C-Reactive Protein (0.00-1.30) mg/dL Total Protein (6.3-8.2) g/dL Assessment and Plan Cultures: Blood culture no growth so far. A/P: 1 yo M PMHx DM2 and HTN admitted with left elbow cellulitis #L elbow cellulitis: am concerned that Augmentin/Bactrim did not alleviate his symptoms. Reocmmend CT of the elbow with contrast to evaluate for abscess. #DM2: tight glycemic control for best outcomes. Recs: -Continue vancomycin dosed per pharmacy, goal trough 10-20 -Stopped Zosyn -Ordered CT of the left elbow with contrast. Thank you for the consult, we will continue to follow. MD Eleuterio Walsh [facility] O: [phone] F: [phone]
--- NOTE | 2021-07-03 17:50 | Progress Note ---
Assessment and Plan (1) Cellulitis of left elbow Current Visit: Yes Status: Acute Plan to address problem: Admit the patient to the [facility]. 1800 kcal ADA diet. Vancomycin 1 g IV every 12 hours. Zosyn 4.5 g IV every every 8 hours.. We do the blood culture. Will consult infectious disease for evaluation. Wound care evaluation. Will consult orthopedic if needed. Recheck CBC BMP in the morning. (2) Tendonitis of elbow, left Current Visit: No Status: Acute Plan to address problem: Vancomycin 1 g IV every 12 hours. Zosyn 4.5 g IV every every 8 hours.. We do the blood culture. Will consult infectious disease for evaluation. Wound care evaluation. Will consult orthopedic if needed. Recheck CBC BMP in the morning. (3) Hypertension Current Visit: Yes Status: Acute Plan to address problem: Hydralazine 10 mg IV every 6 hours as needed. We will monitor the blood pressure closely (4) Diabetes Current Visit: Yes Status: Acute Plan to address problem: 1800 kcal ADA diet. Humalog sliding scale moderate dose coverage. Diabetic education (5) DVT prophylaxis Current Visit: Yes Status: Acute Plan to address problem: Heparin 5000 units subcu every 8 hours for DVT prophylaxis. Pepcid 20 mg p.o. twice daily for GI prophylaxis. Patient is a full code. Daily clinical course: -Continue vancomycin dosed per pharmacy, goal trough 10-20 -Stopped Zosyn -Ordered CT of the left elbow with contrast. Subjective Date of service: 07/03/21 Objective - Constitutional Vitals: Vital Signs - 12hr 07/03/21 07/03/21 07/03/21 06:30 07:30 08:30 Temperature Pulse Rate 86 82 Respiratory 13 12 Rate Blood Pressure 140/68 131/72 151/75 Blood Pressure [Right] O2 Sat by Pulse 97 93 95 Oximetry 07/03/21 16:51 Temperature 98.2 F Pulse Rate 82 Respiratory 18 Rate Blood Pressure Blood Pressure 130/73 [Right] O2 Sat by Pulse 97 Oximetry - Labs CBC & Chem 7: 07/03/21 05:20 07/03/21 05:20 Labs: Abnormal lab results 07/02/21 07/02/21 07/03/21 Range/Units 20:53 20:53 05:20 WBC 11.3 H (4.5-11.0) K/mm3 RBC 3.15 L 2.92 L (3.65-5.03) M/mm3 Hgb 10.5 L 9.7 L (11.8-15.2) gm/dl Hct 30.5 L 27.6 L (35.5-45.6) % MCV 97 H 95 H (84-94) fl MCH 33 H 33 H (28-32) pg MCHC 35 H (32-34) % Lymph % (Auto) 11.8 L 13.0 L (13.4-35.0) % [place] % (Auto) 8.8 H 10.3 H (0.0-7.3) % [place] # (Auto) 1.0 H 1.1 H (0.0-0.8) K/mm3 Seg Neutrophils % 78.3 H 75.0 H (40.0-70.0) % Seg Neutrophils # 8.8 H 7.9 H (1.8-7.7) K/mm3 Sodium 132 L (137-145) mmol/L Chloride 93.3 L (98-107) mmol/L Glucose 298 H (75-100) mg/dL POC Glucose (70-105) mg/dL C-Reactive Protein 30.30 H (0.00-1.30) mg/dL Total Protein 8.4 H (6.3-8.2) g/dL 07/03/21 07/03/21 07/03/21 Range/Units 05:20 08:26 11:32 WBC (4.5-11.0) K/mm3 RBC (3.65-5.03) M/mm3 Hgb (11.8-15.2) gm/dl Hct (35.5-45.6) % MCV (84-94) fl MCH (28-32) pg MCHC (32-34) % Lymph % (Auto) (13.4-35.0) % [place] % (Auto) (0.0-7.3) % [place] # (Auto) (0.0-0.8) K/mm3 Seg Neutrophils % (40.0-70.0) % Seg Neutrophils # (1.8-7.7) K/mm3 Sodium 130 L (137-145) mmol/L Chloride 92.3 L (98-107) mmol/L Glucose 285 H (75-100) mg/dL POC Glucose 334 H 276 H (70-105) mg/dL C-Reactive Protein (0.00-1.30) mg/dL Total Protein (6.3-8.2) g/dL 07/03/21 Range/Units 16:45 WBC (4.5-11.0) K/mm3 RBC (3.65-5.03) M/mm3 Hgb (11.8-15.2) gm/dl Hct (35.5-45.6) % MCV (84-94) fl MCH (28-32) pg MCHC (32-34) % Lymph % (Auto) (13.4-35.0) % [place] % (Auto) (0.0-7.3) % [place] # (Auto) (0.0-0.8) K/mm3 Seg Neutrophils % (40.0-70.0) % Seg Neutrophils # (1.8-7.7) K/mm3 Sodium (137-145) mmol/L Chloride (98-107) mmol/L Glucose (75-100) mg/dL POC Glucose 265 H (70-105) mg/dL C-Reactive Protein (0.00-1.30) mg/dL Total Protein (6.3-8.2) g/dL
--- NOTE | 2021-07-03 22:40 | Cat Scan Report ---
CT upper extrem LT w con INDICATION: Question possible LEFT elbow abscess. TECHNIQUE: All CT scans at this location are performed using the following dose modulation technique: Automated exposure control. COMPARISON: Radiographs one day prior. FINDINGS: No acute skeletal abnormality. No joint effusion is seen. There is diffuse subcutaneous edema within the proximal forearm and distal arm as well as about the e lbow. This appears to be greatest posteriorly superficial to the olecranon. Portion of the soft tissu es in this region are cut off. Accounting for this, no drainable fluid collection is seen. IMPRESSION: 1. Limited study due to patient's inability to position correctly. A portion of the posterior soft ti ssues is cut off from the images. 2. There is diffuse subcutaneous edema greatest posteriorly superficial to the olecranon. No definite fluid collection is seen. MRI would be more sensitive for the detection of olecranon bursitis or abs cess as well as to evaluate for myositis. Signer Name: Harry Gonzalez MD Signed: 07/03/2021 10:36 PM Workstation Name: [id number]
[2021-07-04] MEDS: AMPICILLIN/SULBACTA 3GM/100ML 3 GM/100 ML BAG IV SCH (03:25)
[2021-07-04] MEDS: HEPARIN 5,000 UNIT/1 ML VIAL SUB-Q SCH ×2 (06:07→14:01)
[2021-07-04] MEDS: VANCOMYCIN 1,500 MG in SODIUM CHLORIDE 0.9% 500 ML 500 ML IV SCH (09:48)
[2021-07-04] MEDS: HYDROmorphone 1 MG/1 ML INJ IV PRN (09:49)
[2021-07-04] MEDS: FAMOTIDINE 20 MG TAB PO SCH (09:49)
[2021-07-04] MEDS: INSULIN LISPRO 100 UNIT/ML SUB-Q SCH (11:23)
[2021-07-04] MEDS: oxyCODONE /ACETAMINOPHEN 5-325MG TAB PO PRN (12:40)
[2021-07-04 12:57] VITALS: BP 169/83
--- NOTE | 2021-07-04 15:12 | Event Note ---
Date: 07/11/21 Patient is very rude, verbally abusive, using F-- word and S--word His blood cx is neg, CT scan showed no osteo and soft tissue swelling Discussed with Dr Gill, planned to d/c home with po abx
--- NOTE | 2021-07-04 15:13 | Event Note ---
Date: 07/04/[address] Hall. OK to DC with 10 days doxycycline 100mg q12h.
--- NOTE | 2021-07-04 15:14 | Discharge Summary ---
Providers - Providers Date of Admission: 07/02/21 22:13 Date of discharge: 07/04/21 Attending physician: BRET PAZ 07/02/21 22:13 Consult to Dietitian/Nutrition [CONS] Routine Physician Instructions: Reason For Exam: Reason for Consult: Diet education 07/02/21 22:17 Consult to Physician [CONS] Routine Comment: Consulting Provider: LAURA KILPATRICK Physician Instructions: Reason For Exam: Cellulitis left elbow 07/02/21 22:26 Consult to Wound/ET Nurse [CONS] Routine Reason For Exam: wound eval Primary care physician: [employer] BAG STRIPPER Hospitalization Condition: Stable Time spent for discharge: 34 minutes Exam - Constitutional Vitals: Temp Pulse Resp BP Pulse Ox 98.6 F 75 20 169/83 92 07/04/21 12:44 07/04/21 12:44 07/04/21 12:44 07/04/21 12:44 07/04/21 12:44 Plan Follow up with: LLOYD ART MD [Primary Care Provider] - 3-5 Days MG TERESA MD [Staff Physician] - 7 Days Prescriptions: Doxycycline Hyclate [Doxycycline Hyclate TAB] 100 mg PO Q12HR #20 tab
== END 2021-07-04 17:54 | disposition home or self-care (01) | DRG 603 ==
LOC: ED 17:29 → 3A 22:13 → 4A 23:32
PROVIDERS: ADMIT Hospitalist; ATTEND Internal Medicine
DX: L03.114 Cellulitis of left upper limb (principal); M77.8 Other enthesopathies, not elsewhere classified; I10 Essential (primary) hypertension; E11.9 Type 2 diabetes mellitus without complications
CPT/HCPCS: 36415; 71046; 80048; 80053; 82962; 85025; 85652; 86140; 87040; G0378; J0295; J1170; J1644; J1815; J2270; J2405; J2543; J3370; J7040; Q9967